=== PATIENT | female | born 2000 | race Caucasian/White ===

== ENCOUNTER 2020-11-22 20:09 | Emergency (ER) | payer OTHER, BC ==
[2020-11-22] MEDS ORDERED: Sodium Chloride 0.9% 10 ML Syringe FLUSH PRN (20:18)
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
[2020-11-22] MEDS ORDERED: HYDROmorphone 0.5 MG/0.5 ML Syringe IVPUSH ONE ×2 (21:08→22:25)
[2020-11-22] MEDS ORDERED: Bacitracin Oint 1 GM U/D Packet TOP ONE (21:08)
[2020-11-22] MEDS ORDERED: Methocarbamol 500 MG Tab PO ONE (21:11)
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
[2020-11-22] MEDS ORDERED: Diphtheria,Pertussis(Acell),Tetanus Vaccine 0.5 ML Syringe IM ONE (22:08)
[2020-11-22] MEDS ORDERED: Sodium Chloride 0.9% 10 ML SDV FLUSH ONE (22:36)
[2020-11-22] MEDS ORDERED: Iopamidol 612 MG/ML 100 ML Bottle IV PRN (22:36)
[2020-11-22] MEDS ORDERED: Sodium Chloride 0.9% 100 ML IV SCH (22:45)
== END 2020-11-22 22:52 | disposition home or self-care (01) ==
LOC: JP.ED 20:09
DX: S01.81XA Laceration without foreign body of other part of head, initial encounter (principal); S90.512A Abrasion, left ankle, initial encounter; S39.92XA Unspecified injury of lower back, initial encounter; V86.99XA Unspecified occupant of other special all-terrain or other off-road motor vehicle injured in nontraffic accident, initial encounter; Y92.410 Unspecified street and highway as the place of occurrence of the external cause
CPT/HCPCS: 12011; 36415; 71260; 74177; 80053; 80307; 81001; 85025; 85610; 85730; 86850; 86900; 86901; 90471; 90715; 96374; 96376; 99284; A9270; J1170; Q9967